=== PATIENT | male | born 1975 | race Caucasian/White ===

== ENCOUNTER 2017-09-17 07:30 | Inpatient (IN) ==
[~2017-09-17 07:30] MED LIST: ACETAMINOPHEN 500 MG TABLET PO ONE; DEXAMETHASONE 4 MG/ML INJECTION IVP ONE; FAMOTIDINE PB 20 MG/50 ML BAG IV ONE; LIDOCAINE 1% (10mg/ml) 2mL INJ PF SDV ID ONE; MELOXICAM 15 MG TABLET PO ONE; METOCLOPRAMIDE 10mg/2ml INJECTION IVP ONE; NOZIN NASAL SWAB NAS ONE; ONDANSETRON 4 MG/2 ML INJECTION IVP ONE; TRANEXAMIC ACID 1,000 MG in NS 100 ML IV ONE
[2017-09-17] MEDS ORDERED: EPINEPHrine PF 0.25 MG, BUPIVACAINE 0.25% PF 30 ML, MORPHINE SULFATE 15 MG, KETOROLAC I... OPSITE ONE (08:00)
[2017-09-17] MEDS: NS 1,000 ML IV SCH ×3 (08:35→14:10)
[2017-09-17 08:43] VITALS: BMI 29.3
[2017-09-17] MEDS ORDERED: NS 1,000 ML IV SCH (09:00)
[2017-09-17] MEDS ORDERED: VANCOMYCIN 1,000 MG INJECTION ONE (09:52)
--- NOTE | 2017-09-17 10:12 | Anesthesia Preoperative Report ---
Anesthesia Preoperative Record - Date and Time Date: 09/17/17 Preoperative Diagnosis: Lt TKA M17.12 Proposed Procedure: Left robotic TKA NPO Since Date: 09/17/17 NPO Since Time: 00:00 Allergies/Adverse Reactions: Allergies Allergy/AdvReac Type Severity Reaction Status Date / Time No Known Drug Allergies Allergy Unknown Verified 09/17/17 09:25 - Vital Signs Vital Signs: Temperature 97.8 F 09/17/17 08:00 Pulse Rate 74 09/17/17 08:00 Respiratory Rate 16 09/17/17 08:00 Blood Pressure 134/87 09/17/17 08:00 Pulse Oximetry 94 09/17/17 08:00 Height and Weight: Height 1.88 m Weight 103.6 kg Body Mass Index 29.3 - Medications Inpatient Medications: Current Medications Sodium Chloride (Normal Saline) 1,000 mls @ 50 mls/hr IV .Q20H [facility] Last Admin: 09/17/17 08:35 Dose: 50 mls/hr Epinephrine HCl 0.25 mg/Bupivacaine HCl 30 ml/Morphine Sulfate 15 mg/Ketorolac Tromethamine 60 mg/Sodium Chloride 65.25 mls @ 1 mls/hr OPSITE INTRAOP ONE PRN Reason: Protocol Stop: 09/20/17 01:14 Vancomycin HCl 1,500 mg/ (Sodium Chloride) 500 mls @ 250 drops/hr IV PREOP ONE Stop: 09/18/17 11:59 Last Admin: 09/17/17 09:15 Dose: 250 drops/hr Sodium Chloride (Normal Saline) 1,000 mls @ 50 mls/hr IV .Q20H [facility] Last Admin: 09/17/17 08:50 Dose: 50 mls/hr Sodium Chloride (Iv Flush) 10 - 80 ml IV PRN PRN PRN Reason: Flushing Home Medications: Home Medications Medication Instructions Recorded Confirmed Type Ibuprofen 800 mg PO QID PRN 08/19/17 09/17/17 History Is Patient on Beta Jose?: No - Surgical History HEENT Surgeries: Reports: Other (wisdom teeth ext) GI Surgery/Treatments: Reports: Appendectomy Musculoskeletal Surgery/Tx: Reports: Knee Arthroscopy (left, x2), Shoulder Arthroscopy (left) Anesthesia Reactions: None Hx Family Anesthesia Reaction: No History of Motion Sickness: No - Social History Smoking Status: Never smoker Hx Chewing Tobacco Use: No Second Hand Exposure: No Substance Use Type: does not use Alcohol Intake Frequency: a few times a month - Pertinent Findings EKG: Sinus Rhythm - Physical Exam Respiratory Exam: Present: lungs clear Cardiovascular Exam: Present: regular rate and rhythm - Airway Assessment Mallampati Score: II TMD: 3 Fingerbreadths Neck Extension: good Overall Assessment: no airway concerns - ASA ASA Score: 1 - Discussion Discussion: Discussed risks/options/alternatives of anesthesia and questions answered. Patient consents. Nursing pain assessment noted. Attestation Statement: Prior to the delivery of any anesthetic medication, I examined the patient, developed the plan, obtained the patient's consent and discussed the risk and benefits of the procedure with the patient/guardian.
[2017-09-17] MEDS ORDERED: MIDAZOLAM 2mg/2ml INJECTION ONE ×2 (10:22→10:23)
[2017-09-17] MEDS ORDERED: PROPOFOL 1,000 MG/100 ML VIAL IV ONE (10:22)
[2017-09-17] MEDS ORDERED: EPHEDRINE 50mg/ml INJECTION ONE (10:44)
[2017-09-17] MEDS ORDERED: ONDANSETRON 4 MG/2 ML INJECTION IVP PRN ×2 (11:08→14:04)
[2017-09-17] MEDS ORDERED: HYDROMORPHONE 2 MG/ML INJECTION IVP PRN (11:08)
[2017-09-17] MEDS ORDERED: ROPIVACAINE 0.5% (5mg/ml) 30ml INJ ONE (11:13)
[2017-09-17] MEDS ORDERED: VANCOMYCIN 1,000 MG INJECTION IAR ONE (11:22)
[2017-09-17] MEDS ORDERED: PROPOFOL 500 MG/50 ML VIAL IV ONE (11:31)
[2017-09-17] MEDS ORDERED: PROPOFOL 40 ML ONE (12:05)
[2017-09-17] MEDS ORDERED: PROPOFOL 20 ML ONE (12:06)
--- NOTE | 2017-09-17 13:08 | Anesthesia Procedure Note ---
Peripheral Nerve Blockade - Procedure Physician: John Sanders MD Date: 09/17/17 Surgical Procedure: Left total Knee Artheroplasty Discussion: Discussed risks/options/alternatives of anesthesia and questions answered. Patient consents. Nursing pain assessment noted. Block Start: 12:57 Block Stop: 13:02 Blocked Employed: [employer] Indication: Post-Operative Pain Approach: Left Side Confirmed Position: Supine Patient: Consent, Risks/Benefits Discussed, Informed, Post Block Act. Discussed IV Sedation: No Initial Vital Signs: Temperature 97.8 F 09/17/17 08:00 Temperature Source Oral 09/17/17 08:00 Pulse Rate 74 09/17/17 08:00 Respiratory Rate 16 09/17/17 08:00 Blood Pressure 134/87 09/17/17 08:00 Blood Pressure Mean 102 09/17/17 08:00 Blood Pressure Position Sitting 09/17/17 08:00 Pulse Oximetry 94 09/17/17 08:00 Oxygen Delivery Method 09/17/17 08:00 Post Vital Signs: Temperature 97.8 F 09/17/17 08:00 Pulse Rate 74 09/17/17 08:00 Respiratory Rate 16 09/17/17 08:00 Blood Pressure 134/87 09/17/17 08:00 Pulse Oximetry 94 09/17/17 08:00 Initial Pain Pain Score: 0 Post Block Pain Score: 0 Prep: Chlorhexadine/ETOH Ultrasound Used?: Yes - Injectate Ropivacaine (%): 0.5 Ropivacaine (mL): 30 Injection: Injection made incrementally with constant monitoring and aspiration every ml
--- NOTE | 2017-09-17 13:45 | Anesthesia Postoperative Note ---
- Date and Time Date: 09/17/17 Time: 13:40 - Status Patient Participated in Evaluation: Patient Participated in Person Vital Signs: Temperature 97.9 F 09/17/17 12:55 Pulse Rate 87 09/17/17 13:40 Respiratory Rate 18 09/17/17 13:40 Blood Pressure 108/65 09/17/17 13:40 Pulse Oximetry 96 09/17/17 13:40 Respiratory Function: Airway Patent Cardiovascular Function: Regular Pulse EKG: Sinus Rhythm Mental Status: Alert and Oriented Pain Intensity: 0 Hydration: IV Infusing Complications During Recover: None Apparent - Follow-Up Instructions Instructions: Per Surgeon
--- NOTE | 2017-09-17 13:53 | Operative Note ---
- Procedure Preoperative Diagnosis: Left knee primary degenerative joint disease Postoperative Diagnosis: Same as preoperative diagnosis. Surgeon: Kristen Sanders MD Data Collection Associate: Erick Malave Complications: None. Anesthesia: Spinal. Estimated Blood Loss: See Anesthesia Record. Fluids: Please see Anesthesia Record. Desciption of Procedure: Mr. Velásquez and his left knee were identified and marked in the preoperative holding area. He was brought back to the operating suite after a saphenous nerve block was placed in the preoperative holding area. Spinal anesthetic was administered and he was placed supine on the operating table. The left lower extremity was prepped and draped in my normal sterile fashion. Timeout was performed. The [employer] robot was used during the surgery. A standard anterior midline incision followed by medial parapatellar arthrotomy was performed. Anterior fat pad and meniscus were removed. He had considerable damage in the lateral compartment as well as in the trochlea and some mild arthritic changes in the medial femoral condyle. The patella was resurfaced to a size 35. Tibial and femoral arrays were placed both within the original incision. Checkpoints were then placed both in the femur and the tibia. The bone was then registered with the [employer] robot. Osteophytes were removed and gaps were captured both 90 and 0 with correction. The [employer] robotic arm was then used to assist with the bone cuts. Posterior osteophytes and remaining meniscus were removed. Trial components were placed. We used a 7 femur and a 7 tibia with a 9 mm spacer. He tracked well and was well balanced throughout range of motion. Given the patient's age and excellent bone quality decided to use press-fit components. All 3 components were press-fit into place without complications and the liner placed. The knee was ranged one more time to ensure good stability , balance and patellar tracking. 1 g of vancomycin powder was then placed into the knee joint. There was a small probably 20% tear of the patellar tendon at the joint line. This was repaired with #1 Vicryl. The capsulotomy was then closed with #1 Vicryl. I then left my physiotherapy assistant to close the subcutaneous tissue with 2-0 Vicryl. Running 4-0 Monocryl will be used in the subcuticular layer. Dermabond will be used on the skin followed by sterile dressing. After drapes are removed patient will be taken to recovery room under the care of anesthesia.
[2017-09-17] MEDS ORDERED: DiphenhydrAMINE 25 MG CAPSULE PO PRN (14:04)
[2017-09-17] MEDS ORDERED: DiphenhydrAMINE 50 MG/ML INJECTION IVP PRN (14:04)
[2017-09-17] MEDS ORDERED: NOZIN NASAL SWAB NAS ONE (14:04)
[2017-09-17] MEDS ORDERED: IBUPROFEN 200 MG TABLET PO PRN (14:04)
[2017-09-17] MEDS ORDERED: LORazepam 1 MG TABLET PO PRN (14:04)
[2017-09-17] MEDS: NOZIN NASAL SWAB NAS SCH ×2 (14:07→21:02)
[2017-09-17] MEDS ORDERED: FALL RISK - PHARMACY CONSULT XX ONE (14:12)
--- NOTE | 2017-09-17 14:20 | XRay Report ---
Indication: postoperative image PROCEDURE: XR knee LT 2V: Encounter: Initial Comparison: June 24, 2017 Findings: Postoperative changes of left total knee replacement are seen. There is expected postoperative subcutaneous gas. No evidence of hardware failure or acute fracture. No retained radiopaque surgical instruments or sponges. Overlying material causing artifact. Impression: New left total knee prosthesis without evidence of immediate complication. .
[2017-09-17] MEDS: ACETAMINOPHEN 325 MG TABLET PO SCH ×3 (14:40→21:03)
[2017-09-17 14:45] VITALS: RESP 16
[2017-09-17] MEDS ORDERED: SALINE FLUSH 10ml SYRINGE IV PRN (17:03)
[2017-09-17] MEDS: Oxycodone *IR* 5 MG TABLET PO PRN ×2 (17:05→22:40)
[2017-09-17] MEDS: DEXAMETHASONE 4 MG/ML INJECTION IVP SCH (17:05)
[2017-09-17] MEDS ORDERED: SENNOSIDES 8.6 MG TABLET PO SCH (21:00)
[2017-09-17] MEDS: DOCUSATE SODIUM 100 MG CAPSULE PO SCH (21:02)
[2017-09-17] MEDS: ASPIRIN *EC* 81 MG TABLET PO SCH (21:03)
[2017-09-18] MEDS: DEXAMETHASONE 4 MG/ML INJECTION IVP SCH (02:18)
[2017-09-18] MEDS: NS 1,000 ML IV SCH (02:19)
[2017-09-18] MEDS: NOZIN NASAL SWAB NAS SCH ×2 (06:51→13:05)
--- NOTE | 2017-09-18 08:06 | Orthopedic Progress Note ---
Date: Subjective/Severity of Illness: Daniel is doing very well this AM. Pain is controlled. He has been mobile with good tolerance. No reported concerns. Orthopedic Objective PO Vital signs: Temperature 95.8 F L 09/18/17 04:00 Pulse Rate 89 09/18/17 04:00 Respiratory Rate 16 09/18/17 04:00 Blood Pressure 121/70 09/18/17 04:00 Pulse Oximetry 93 09/18/17 04:00 Height and Weight: Height 6 ft 2 in Weight 228 lb 6.382 oz Body Mass Index 29.3 - Constitutional General Appearance: Present: alert, no acute distress - Respiratory Exam Present: non-labored - Extremities Exam Extremities: Present: pulses intact. Absent: calf tenderness - Surgical Site Incision: Mepilex dressing intact, no drainage - Neurological Exam Present: no deficits - Psychiatric Exam Present: alert, normal affect - Labs Result Diagrams: 09/18/17 04:10 09/18/17 04:10 Abnormal lab results 09/18/17 09/18/17 Range/Units 04:10 04:10 Hgb 13.3 L (13.5-17.5) GM/DL Hct 39.5 L (41-53) % Chloride 108 H (98-107) MEQ/L Glucose 162 H (75-110) MG/DL H & H 09/18/17 Range/Units 04:10 Hgb 13.3 L (13.5-17.5) GM/DL Hct 39.5 L (41-53) % Orthopedic Assessment and Plan (1) Primary osteoarthritis of left knee Status: Acute - Anticoagulation Therapy Anticoagulation: ASA 81 mg PO BID x6 weeks Hospital Course Summary Disclaimer: The visit summary below is not to be considered part of the above Progress Note.
--- NOTE | 2017-09-18 08:23 | Discharge Summary ---
Orthopedic Discharge Info Date of admission: 09/17/17 08:00 Anticipated date of discharge: 09/18/17 Primary care physician: Rafita Malloy MD Attending Physician: John Sanders MD Consults: 09/17/17 08:12 Consult to Anesthesiology [CONS] Routine Consulting Provider: RAYMON Zuniga Reason For Exam: Preoperative Assessment 09/17/17 14:04 Case Management Consult [CONS] Routine Reason For Exam: Discharge Planning DME-Walker [CONS] Routine Height: 6 ft 2 in Weight: 228 lb 6.382 oz Comment: change dressing in 2 weeks Total Joint Outpatient Therapy [CONS] Routine Comment: change dressing in 2 weeks - Discharge Diagnosis (1) Primary osteoarthritis of left knee Status: Acute - Procedures Procedures: Left TKA 09/17/17 - Laboratory Result Diagrams: 09/18/17 04:10 09/18/17 04:10 Laboratory: Abnormal lab results 09/18/17 09/18/17 Range/Units 04:10 04:10 Hgb 13.3 L (13.5-17.5) GM/DL Hct 39.5 L (41-53) % Chloride 108 H (98-107) MEQ/L Glucose 162 H (75-110) MG/DL H & H 09/18/17 Range/Units 04:10 Hgb 13.3 L (13.5-17.5) GM/DL Hct 39.5 L (41-53) % Orthopedic Discharge HPI - HPI Comments This patient was admitted for elective surgical tx of end stage degenerative joint disease that failed to respond to conservative treatment. Further details of this is found in the admission H&P. . Orthopedic Hospital Course Hospital course: 09/18/17 08:21 After appropriate preoperative clearance and signing of operative consent, the patient was given IV antibiotics, according to orthopedic protocol. The patient was taken to the operating room and underwent elective left total knee arthroplasty. Following surgery, antibiotics were discontinued less than 24 hours according to joint protocol. Aspirin was initiated and SCDs added for DVT prevention. The dressing was clean, dry, and intact. Pain control was obtained via multimodal approach. Bowel motivation addressed with scheduled and PRN medications. Early mobilization was initiated through PT services. Discharge arrangements made by a collaborative effort between the patient and Case Management. Follow-up is scheduled in 2-3 weeks. Discharge instructions given by orthopedic providers and nursing staff at discharge. Discharge condition was good. Ongoing care required?: No Discharge Plan - Med Rec/Dispo Referrals/Follow Up: John Sanders MD [Physician] - 10/09/17 9:15 am [place] Instructions: [facility] Postop Instructions Prescriptions: New Aspirin *EC* [Ecotrin] 81 mg PO BID #90 tab Milk of Magnesia [Mom] 30 ml PO DAILY udc Oxycodone *IR* [Roxicodone *Ir*] 5 - 15 mg PO Q3H PRN #60 tab PRN Reason: Breakthrough Pain PEG 3350 17gm PACKET [Miralax] 17 gm PO DAILY packet Acetaminophen [Tylenol] 650 mg PO QID tablet Docusate Sodium [Colace] 100 mg PO BID capsule Continue Ibuprofen 800 mg PO QID PRN PRN Reason: Pain - Disposition 01 Discharged Home, Self-Care - Dismissal Complete Discharge Instructions are:: Incomplete
[2017-09-18] MEDS: ACETAMINOPHEN 325 MG TABLET PO SCH ×2 (08:56→12:20)
[2017-09-18] MEDS: Oxycodone *IR* 5 MG TABLET PO PRN ×3 (08:56→13:06)
[2017-09-18] MEDS: ASPIRIN *EC* 81 MG TABLET PO SCH (08:56)
[2017-09-18] MEDS: DOCUSATE SODIUM 100 MG CAPSULE PO SCH (08:56)
[2017-09-18] MEDS ORDERED: POLYETHYL GLYCOL 3350 17gm PACKET PO SCH (09:00)
[2017-09-18 12:03] VITALS: BP 146/84; PULSE 87; TEMP 96.8; O2SAT 95
[2017-09-18] MEDS ORDERED: SENNOSIDES 8.6 MG TABLET PO PRN (12:45)
[2017-09-19] MEDS ORDERED: BISACODYL 10 MG SUPPOSITORY RECTALLY SCH (20:00)
== END 2017-09-18 14:25 | disposition home or self-care (01) | DRG 470 ==
LOC: SRG 08:00
PROVIDERS: ADMIT Orthopaedic Surgery; ATTEND Orthopaedic Surgery